=== PATIENT | male | born 1985 | race Asian ===

== ENCOUNTER 2019-10-30 14:55 | Emergency (ER) | payer OTHER ==
[~2019-10-30] VITALS: Ht 167.6 cm; Wt 68.2 kg
[2019-10-30 17:39] VITALS: BP 140/88
== END 2019-10-30 17:44 | disposition home or self-care (01) ==
LOC: EMS 14:56
DX: B34.9 Viral infection, unspecified (principal); R06.02 Shortness of breath; F17.210 Nicotine dependence, cigarettes, uncomplicated; F12.90 Cannabis use, unspecified, uncomplicated; Z20.828 Contact with and (suspected) exposure to other viral communicable diseases
CPT/HCPCS: 87635